=== PATIENT | male | born 1985 | race Caucasian/White ===

== ENCOUNTER 2017-02-26 04:17 | Emergency (ER) | payer BC ==
[2017-02-26] MEDS ORDERED: HYDROmorphone 2 MG/ML Syringe IM ONE (04:21)
[2017-02-26] MEDS ORDERED: HYDROmorphone 1 MG/ML Syringe ONE (04:23)
--- NOTE | 2017-02-26 05:13 | EDM.PDOC ---
ED HPI GENERAL MEDICAL PROBLEM - General Chief Complaint: Upper Extremity Injury/Pain Stated Complaint: RIGHT SHOULDER PAIN Time Seen by Provider: 02/26/17 05:11 - History of Present Illness INITIAL COMMENTS - FREE TEXT/NARRATIVE: HISTORY AND PHYSICAL: History of present illness: Patient 31-year-old white male presents with a concern of subluxation of this right shoulder this occurred during sex he's had this happen multiple times prior he denies other trauma or concern Review of systems: As per history of present illness and below otherwise all systems reviewed and negative. Past medical history: As per history of present illness and as reviewed below otherwise noncontributory. Surgical history: As per history of present illness and as reviewed below otherwise noncontributory. Social history: No reported history of drug or alcohol abuse. Family history: As per history of present illness and as reviewed below otherwise noncontributory. Physical exam: HEENT: Atraumatic, normocephalic, pupils reactive, negative for conjunctival pallor or scleral icterus, mucous membranes moist, throat clear, neck supple, nontender, trachea midline. Lungs: Clear to auscultation, breath sounds equal bilaterally, chest nontender. Heart: S1S2, regular, negative for clicks, rubs, or JVD. Abdomen: Soft, nondistended, nontender. Negative for masses or hepatosplenomegaly. Negative for costovertebral tenderness. Pelvis: Stable nontender. Genitourinary: Deferred. Rectal: Deferred. Extremities: Patient with before meals drop-off of his right shoulder with obvious dislocation no vascular exam unremarkable Neuro: Awake, alert, oriented. Cranial nerves II through XII unremarkable. Cerebellum unremarkable. Motor and sensory unremarkable throughout. Exam nonfocal. Diagnostics: X-ray right shoulder Therapeutics: Patient right shoulder subluxation reduced with traction countertraction successful reduction sling applied Impression: #1 subluxation right shoulder Definitive disposition and diagnosis as appropriate pending reevaluation and review of above. right shoulder Pain Score (Numeric/FACES): 10 - Related Data Allergies Allergy/AdvReac Type Severity Reaction Status Date / Time No Known Allergies Allergy Verified 02/26/17 04:21 Home Meds: Home Meds . [No Known Home Meds] 02/26/17 [History] Past Medical History - Past Health History Medical/Surgical History: Denies Medical/Surgical History Gastrointestinal History: Reports: Chronic Diarrhea, GERD, Irritable Bowel Syndrome Musculoskeletal History: Reports: Other (See Below) Other Musculoskeletal History: hx of dislocation Psychiatric History: Reports: Anxiety, Depression - Past Surgical History GI Surgical History: Reports: Colonoscopy, EGD Social & Family History - Family History Family Medical History: Noncontributory - Tobacco Use Smoking Status *Q: Current Every Day Smoker Years of Tobacco use: 7 Packs/Tins Daily: 1 Second Hand Smoke Exposure: Yes - Alcohol Use Days Per Week of Alcohol Use: 5 Number of Drinks Per Day: 10 Total Drinks Per Week: 50 - Recreational Drug Use Recreational Drug Use: No Review of Systems - Review of Systems Review Of Systems: ROS reveals no pertinent complaints other than HPI. ED EXAM, GENERAL - Physical Exam Exam: See Below (See dictation) Course - Vital Signs Last Recorded V/S: Last Vital Signs Temp 36.2 C 02/26/17 04:18 Pulse 95 02/26/17 04:18 Resp 20 02/26/17 04:18 BP 151/92 H 02/26/17 04:18 Pulse Ox 97 02/26/17 04:18 - Orders/Labs/Meds Orders: Active Orders 24 hr Category Date Time Status Shoulder Comp Rt [CR] Stat Exams 02/26/17 04:22 Taken Shoulder Comp Rt [CR] Stat Exams 02/26/17 04:59 Ordered Meds: Medications Discontinued Medications Generic Name Dose Route Start Last Admin Trade Name Tiera PRN Reason Stop Dose Admin Hydromorphone HCl 1 mg 02/26/17 04:21 02/26/17 04:31 Dilaudid IM 02/26/17 04:22 1 mg ONETIME ONE Administration Hydromorphone HCl Confirm 02/26/17 04:23 02/26/17 04:31 Dilaudid Administered 02/26/17 04:24 Not Given Dose 1 mg .ROUTE .STK-MED ONE Departure - Departure Time of Disposition: 05:12 Disposition: Home, Self-Care 01 Condition: Good Clinical Impression: Shoulder dislocation - Discharge Information Referrals: Roberth Burton MD [Primary Care Provider] - Additional Instructions: The following information is given to patients seen in the emergency department who are being discharged to home. This information is to outline your options for follow-up care. We provide all patients seen in our emergency department with a follow-up referral. The need for follow-up, as well as the timing and circumstances, are variable depending upon the specifics of your emergency department visit. If you don't have a primary care physician on staff, we will provide you with a referral. We always advise you to contact your personal physician following an emergency department visit to inform them of the circumstance of the visit and for follow-up with them and/or the need for any referrals to a consulting specialist. The emergency department will also refer you to a specialist when appropriate. This referral assures that you have the opportunity for followup care with a specialist. All of these measure are taken in an effort to provide you with optimal care, which includes your followup. Under all circumstances we always encourage you to contact your private physician who remains a resource for coordinating your care. When calling for followup care, please make the office aware that this follow-up is from your recent emergency room visit. If for any reason you are refused follow-up, please contact the [facility] emergency department at and asked to speak to the emergency department charge nurse. [facility] Professional [address], [address] [place] [address] Sling as directed Motrin/Tylenol as directed follow-up orthopedic clinic call for routine appointment above return as needed as discussed - My Orders Last 24 Hours: My Active Orders 02/26/17 04:22 Shoulder Comp Rt [CR] Stat 02/26/17 04:59 Shoulder Comp Rt [CR] Stat - Assessment/Plan Last 24 Hours: My Active Orders 02/26/17 04:22 Shoulder Comp Rt [CR] Stat 02/26/17 04:59 Shoulder Comp Rt [CR] Stat
[2017-02-26 05:42] VITALS: BP 135/89
--- NOTE | 2017-02-27 13:15 | CR ---
EXAM DATE: 02/26/17 PATIENT'S AGE: 31 Patient: TYLOR HARRIS Facility: [place], [place] Site . Site : 1985 Study: XRay Shoulder Right [id number]/27/2017 4:41:54 AM Ordering Physician: Doctor Bone Final Report: Indication: Right shoulder dislocation. Technique: Right shoulder two views. Comparison: 07/04/2015. Findings: There is anterior inferior dislocation of the humeral head relative to the glenoid. No evidence of acute fracture. Soft tissues as imaged are unremarkable. Impression: Right anterior inferior shoulder dislocation. Dictated by Dev Monreal MD @ 02/26/2017 4:54:37 AM Dictated by: Dev Monreal MD @ 02/26/2017 04:54:45 (Electronic Signature) Report Signed by Proxy. [facility]
--- NOTE | 2017-02-27 13:16 | CR ---
EXAM DATE: 02/26/17 PATIENT'S AGE: 31 Patient: TYLOR HARRIS Facility: [place], [place] Site . Site : 1985 Study: XRay Shoulder Right [id number]/27/2017 5:21:43 AM Ordering Physician: Norma eWtzel Final Report: Indication: Post reduction. Technique: Right shoulder one view. Comparison: Right shoulder February 26, 2017 at 4:25 a.m.. Findings: Successful reduction of previously noted right shoulder dislocation. No evidence of acute fracture. Impression: Successful reduction of right shoulder dislocation. Dictated by Dve Monreal MD @ 02/26/2017 5:28:59 AM Dictated by: Dev Monreal MD @ 02/26/2017 05:29:15 (Electronic Signature) Report Signed by Proxy. [facility]
== END 2017-02-26 05:45 | disposition home or self-care (01) ==
LOC: MW.ED 04:17
DX: S43.004A Unspecified dislocation of right shoulder joint, initial encounter (principal); K21.9 Gastro-esophageal reflux disease without esophagitis; F17.210 Nicotine dependence, cigarettes, uncomplicated; X58.XXXA Exposure to other specified factors, initial encounter
CPT/HCPCS: 23650; 73020; 73030; 96372; 99283; A4566; J1170; 99282

== ENCOUNTER 2021-01-17 15:36 | Emergency (ER) | payer BC ==
[2021-01-17 16:09] VITALS: BP 138/96; PULSE 93
--- NOTE | 2021-01-17 16:23 | EDM.PDOC ---
<Romi Jones - Last Filed: 01/17/21 17:15> ED HPI GENERAL MEDICAL PROBLEM - General Chief Complaint: Upper Extremity Injury/Pain Stated Complaint: SHOULDER PAIN Time Seen by Provider: 01/17/21 15:41 Source of Information: Reports: Patient History Limitations: Reports: No Limitations - History of Present Illness INITIAL COMMENTS - FREE TEXT/NARRATIVE: HISTORY AND PHYSICAL: History of present illness: Patient is a 35-year-old male who presents to the ED today with concern of pain following dislocation and states he was able to relocate his right shoulder on his own. Patient states that he does have frequent shoulder dislocation and had surgery on his shoulder 5 years ago [facility] [place]. Patient states since then, he does not have as frequent shoulder dislocations but it has happened several times since the surgery. Patient states that he pushed himself up out of a chair today and felt his shoulder dislocate and states that he was able to get it to pop back in but has some residual pain in his right shoulder and was concerned that he had dislodged some instrumentation in his right shoulder. Patient states that he has full sensation of his upper extremity and denies any direct trauma. Patient denies any other symptoms or concerns. Patient denies fever, chills, chest pain, shortness of breath, or cough. Denies headache, neck stiff ness, change in vision, syncope, or near syncope. Denies nausea, vomiting, abdominal pain, diarrhea, constipation, or dysuria. Has not noted any blood in urine or stool. Patient has been eating and drinking appropriately. Review of systems: As per history of present illness and below otherwise all systems reviewed and negative. Past medical history: As per history of present illness and as reviewed below otherwise noncontributory. Surgical history: As per history of present illness and as reviewed below otherwise noncontributory. Social history: See social history for further information Family history: As per history of present illness and as reviewed below otherwise noncontributory. Physical exam: General: Patient is alert, oriented, and in no acute distress. Patient sitting comfortably on exam table. Vitals stable and reviewed by me. HEENT: Atraumatic, normocephalic, pupils equal and reactive bilaterally, negative for conjunctival pallor or scleral icterus, mucous membranes moist, TMs normal bilaterally, throat clear, neck supple, nontender, trachea midline. No drooling or trismus noted. No meningeal signs. No hot potato voice noted. Lungs: Clear to auscultation, breath sounds equal bilaterally, chest nontender. Heart: S1S2, regular rate and rhythm without overt murmur Abdomen: Soft, nondistended, nontender. Negative for masses or hepat osplenomegaly. Negative for costovertebral tenderness. Pelvis: Stable nontender. Genitourinary: Deferred. Rectal: Deferred. Skin: Intact, warm, dry. No lesions or rashes noted. Extremities: The right shoulder is in a sling. Unable to assess the right shoulder due to pain of the right shoulder but does have full range of motion of the right elbow wrist and digits of the right upper extremity. Radial pulses grossly intact of the right upper extremity with capillary refill less than 2 seconds. No obvious erythema, edema, or increased warmth of the right shoulder with some mild discomfort to palpation of the anterior shoulder of the right. Intact sensation to light and deep touch of the complete right upper extremity. All compartments are soft of the right upper extremity. Otherwise, atraumatic, negative for cords or calf pain. Neurovascular unremarkable. Neuro: Awake, alert, oriented. Cranial nerves II through XII unremarkable. Cerebellum unremarkable. Motor and sensory unremarkable throughout. Exam nonfocal. Notes: Discussed importance of follow-up with an orthopedic provider. Signs symptoms that were prompt return to the ED thoroughly discussed with patient. Voices understanding and is agreeable to plan of care. Denies any further questions or concerns at this time. Diagnostics: Right shoulder x-ray Therapeutics: Toradol IM Prescription: None Impression: Right shoulder pain Shoulder dislocation, recurrent, reduced prior to ED Plan: 1. Rest, ice, elevate the affected extremity. You can apply ice 15 minutes on, 15 minutes off. 2. Tylenol and/or Ibuprofen as directed for pain management or discomfort. 3. Follow up with the Orthopedic provider as discussed. Return to the ED as needed and as discussed. Definitive disposition and diagnosis as appropriate pending reevaluation and review of above. right shoulder Pain Score (Numeric/FACES): 10 - Related Data Allergies Allergy/AdvReac Type Severity Reaction Status Date / Time No Known Allergies Allergy Verified 01/17/21 16:00 Home Meds: Home Meds Blood Pressure; 01/17/21 [History] Cholesterol Medication 01/17/21 [History] Omeprazole Magnesium [Prilosec Otc] 01/17/21 [History] QUEtiapine [SEROquel] 25 mg PO BID 01/17/21 [History] Past Medical History - Past Health History Medical/Surgical History: Denies Medical/Surgical History Cardiovascular History: Reports: High Cholesterol, Hypertension Gastrointestinal History: Reports: Chronic Diarrhea, GERD, Irritable Bowel Syndrome Musculoskeletal History: Reports: Other (See Below) Other Musculoskeletal History: hx of frequent right shoulder dislocation and reduction. Psychiatric History: Reports: Anxiety, Depression - Infectious Disease History Infectious Disease History: Reports: Chicken Pox, Shingles - Past Surgical History GI Surgical History: Reports: Colonoscopy, EGD Social & Family History - Family History Family Medical History: No Pertinent Family History - Tobacco Use Tobacco Use Status *Q: Former Tobacco User Used Tobacco, but Quit: Yes Month/Year Tobacco Last Used: 2017 - Recreational Drug Use Recreational Drug Use: No Review of Systems - Review of Systems Review Of Systems: Comprehensive ROS is negative, except as noted in HPI. ED EXAM, GENERAL - Physical Exam Exam: See Below (see dictation) Departure - Departure Disposition: Home, Self-Care 01 Clinical Impression: Shoulder pain Qualifiers: Chronicity: acute Laterality: right Qualified Code(s): M25.511 - Pain in right shoulder Shoulder dislocation, recurrent Qualifiers: Laterality: right Qualified Code(s): M24.411 - Recurrent dislocation, right shoulder - Discharge Information Instructions: Shoulder Dislocation, [id number] Referrals: Wil Trevino MD [Primary Care Provider] - Forms: ED Department Discharge Additional Instructions: [facility] [address], [address] [place] [address] The following information is given to patients seen in the emergency department who are being discharged to home. This information is to outline your options for follow-up care. We provide all patients seen in our emergency department with a follow-up referral. The need for follow-up, as well as the timing and circumstances, are variable depending upon the specifics of your emergency department visit. If you don't have a primary care physician on staff, we will provide you with a referral. We always advise you to contact your personal physician following an emergency department visit to inform them of the circumstance of the visit and for follow-up with them and/or the need for any referrals to a consulting specialist. The emergency department will also refer you to a specialist when appropriate. This referral assures that you have the opportunity for follow-up care with a specialist. All of these measure are taken in an effort to provide you with optimal care, which includes your follow-up. Under all circumstances we always encourage you to contact your private physician who remains a resource for coordinating your care. When calling for follow-up care, please make the office aware that this follow-up is from your recent emergency room visit. If for any reason you are refused follow-up, please contact the [facility] Emergency Department at and asked to speak to the emergency department charge nurse. 1. Rest, ice, elevate the affected extremity. You can apply ice 15 minutes on, 15 minutes off. Continue to use your shoulder sling as discussed until orthopedic evaluation. 2. Tylenol and/or Ibuprofen as directed for pain management or discomfort. 3. Follow up with the Orthopedic provider as discussed. Return to the ED as needed and as discussed. Sepsis Event Note (ED) - Evaluation Sepsis Screening Result: No Definite Risk <Larry Hamilton - Last Filed: 01/17/21 17:40> Course - Vital Signs Text/Narrative:: Patient was dislocated now is relocated it himself. He has not seen orthopedics for more than 2 years. It happened before. X-rays normal to my exam. Patient is neurovascular status in the median ulnar and radial as well as capillary refi ll are intact in the right upper extremity. Discharged with a sling. Last Recorded V/S: Last Vital Signs Temp 37.1 C 01/17/21 16:04 Pulse 93 01/17/21 16:04 Resp 18 01/17/21 16:04 BP 138/96 H 01/17/21 16:04 Pulse Ox 97 01/17/21 16:04 - Orders/Labs/Meds Orders: Active Orders 24 hr Category Date Time Status DME for Discharge [COMM] Stat Oth 01/17/21 17:25 Ordered Meds: Medications Discontinued Medications Generic Name Dose Route Start Last Admin Trade Name Freq PRN Reason Stop Dose Admin Ketorolac Tromethamine 60 mg 01/17/21 16:59 01/17/21 17:12 Ketorolac 60 Mg/2 Ml Sdv IM 01/17/21 17:00 60 mg ONETIME ONE Administration Departure - Departure Time of Disposition: 17:11 Condition: Good Sepsis Event Note (ED) - Focused Exam Vital Signs: Vital Signs Temp Pulse Resp BP Pulse Ox 01/17/21 16:04 37.1 C 93 18 138/96 H 97
--- NOTE | 2021-01-17 16:42 | CR ---
Indication: Shoulder dislocation. Pain. Technique: Three views of the right shoulder. Comparison: March 14, 2017. Findings: The humeral head is seated within the glenoid. No fracture or subluxation is identified. Impression: No acute fracture Dictated by Megha Overton MD @ 01/17/2021 4:40:[address] Megha Overton @ Jan 17 2021 4:40PM
[2021-01-17] MEDS ORDERED: Ketorolac 60 MG/2 ML SDV IM ONE (16:59)
== END 2021-01-17 17:34 | disposition home or self-care (01) ==
LOC: MW.ED 15:36
DX: M24.411 Recurrent dislocation, right shoulder (principal); E78.00 Pure hypercholesterolemia, unspecified; I10 Essential (primary) hypertension; K21.9 Gastro-esophageal reflux disease without esophagitis; Z87.891 Personal history of nicotine dependence
CPT/HCPCS: 73030; 96372; 99283; J1885

== ENCOUNTER 2021-02-26 19:46 | Emergency (ER) | payer BC ==
[2021-02-26] MEDS ORDERED: Diphtheria,Pertussis(Acell),Tetanus Vaccine 0.5 ML Syringe IM ONE (21:09)
[2021-02-26] MEDS ORDERED: Octyl 2-Cyanoacrylate 1 APPLIC TUBE TOP ONE (21:25)
--- NOTE | 2021-02-26 21:32 | EDM.PDOC ---
ED HPI GENERAL MEDICAL PROBLEM - General Chief Complaint: Laceration Stated Complaint: LACERATION ON RT FINGER Time Seen by Provider: 02/26/21 21:08 - History of Present Illness INITIAL COMMENTS - FREE TEXT/NARRATIVE: History of present illness: [] This healthy 35-year-old male cut his right index finger. He has laceration on the dorsal PIP #2 of the index finger of the right upper extremity. There is no functional deficit or neurovascular deterioration distally. Review of systems: As per history of present illness and below otherwise all systems reviewed and negative. Past medical history: As per history of present illness and as reviewed below otherwise noncontributory. Surgical history: As per history of present illness and as reviewed below otherwise noncontributory. Social history: No reported history of drug or alcohol abuse. Family history: As per history of present illness and as reviewed below otherwise noncontributory. Physical exam: Constitutional - well developed, well-nourished and in no acute distress HEENT - normocephalic, no evidence of trauma - external nose and mouth normal - no mass in neck and no JVD - mucosae moist EYES - full EOM, PERRL, no icterus - no evidence of inflammation, injection, or drainage Respiratory - no respiratory distress, equal bilateral expansio Musculoskeletal no gross deformity of long bones or joints - no tenderness, swelling or edema Neurologic - Alert and oriented times four - CN II-XII grossly intact - motor sensory and coordination symmetrically normal Psychiatric - appropriate mood and affect with normal thought content Hematologic - No petechiae or purpura - mucosa appropriate color and sclera not pale - normal nail bed color and refill Integument -laceration to the index finger of the right hand. Its longitudinal no of the dorsal the PIP and he has normal function and normal distal sensation motion and capillary refill. Otherwise no rash or evidence of trauma - normal turgor Diagnostics: [] Therapeutics: [] Impression: [] Plan: [] Definitive disposition and diagnosis as appropriate pending reevaluation and review of above. Right Finger-Index Pain Score (Numeric/FACES): 4 - Related Data Allergies Allergy/AdvReac Type Severity Reaction Status Date / Time No Known Allergies Allergy Verified 02/26/21 21:10 Home Meds: Home Meds . [Unable to Verify Home Med List] 02/26/21 [History] Past Medical History - Past Health History Medical/Surgical History: Denies Medical/Surgical History Cardiovascular History: Reports: High Cholesterol, Hypertension Gastrointestinal History: Reports: Chronic Diarrhea, GERD, Irritable Bowel Syndrome Musculoskeletal History: Reports: Other (See Below) Other Musculoskeletal History: hx of frequent right shoulder dislocation and reduction. Psychiatric History: Reports: Anxiety, Depression - Infectious Disease History Infectious Disease History: Reports: Chicken Pox, Shingles - Past Surgical History GI Surgical History: Reports: Colonoscopy, EGD Social & Family History - Family History Family Medical History: No Pertinent Family History - Tobacco Use Tobacco Use Status *Q: Never Tobacco User - Caffeine Use Caffeine Use: Reports: None - Recreational Drug Use Recreational Drug Use: No ED ROS GENERAL - Review of Systems Review Of Systems: Comprehensive ROS is negative, except as noted in HPI. ED EXAM, SKIN/RASH Exam: See Below Text/Narrative:: My physical exam is in the HPI ED SKIN PROCEDURES - Laceration/Wound Repair Right Digit - 2nd (Index) Appearance: Superficial Distal NVT: Neuro & Vascular Intact, No Tendon Injury Skin Prep: Providone-Iodine (Betadine), Saline Saline Irrigation (cc's): 250 Exploration/Debridement/Repair: In a Bloodless Field Closed with: Dermabond Lac/Wound length In cm: 1.5 Progress/Comments: Patient elected the adhesive repair. He agreed that he would wear splint for 2 days so that he did not write that he is of bending his finger. Adhesive was applied without complication. Course - Vital Signs Text/Narrative:: Neurovascular structures intact and unchanged after splint applied. DME splint was applied and gentle flexion in position of function so that he did not rip the adhesive off with aggressive range of motion of the finger. This is needed for 2 days Last Recorded V/S: Last Vital Signs Temp 36.1 C 02/26/21 21:10 Pulse 91 02/26/21 21:10 Resp 16 02/26/21 21:10 BP 134/90 02/26/21 21:10 Pulse Ox 95 02/26/21 21:10 - Orders/Labs/Meds Orders: Active Orders 24 hr Category Date Time Status Vaccines to be Administered [RC] PER UNIT ROUTINE Care 02/26/21 21:09 Active Meds: Medications Discontinued Medications Generic Name Dose Route Start Last Admin Trade Name Freq PRN Reason Stop Dose Admin Diphtheria/Tetanus/Acell Pertussis 0.5 ml 02/26/21 21:09 Diphtheria,Pertussis(Acell),Tetanus Vaccine 0.5 Ml Syringe IM 02/26/21 21:10 .ONCE ONE Octyl Cyanoacrylate 1 applic 02/26/21 21:25 Octyl 2-Cyanoacrylate 1 Applic Tube TOP 02/26/21 21:26 ONETIME ONE Departure - Departure Time of Disposition: 21:28 Disposition: Home, Self-Care 01 Condition: Good Clinical Impression: Laceration of index finger - Discharge Information Instructions: Laceration Care, Adult, [id number], Sutures, William, or Adhesive Wound Closure, [id number] Referrals: Wil Trevino MD [Primary Care Provider] - Additional Instructions: Do not aggressively Pheresis Specialist move this finger for 2 days so the glue can heal. [facility] - Primary Care [address] [place] [address] [place] [address] The following information is given to patients seen in the emergency department who are being discharged to home. This information is to outline your options for follow-up care. We provide all patients seen in our emergency department with a follow-up referral. The need for follow-up, as well as the timing and circumstances, are variable depending upon the specifics of your emergency department visit. If you don't have a primary care physician on staff, we will provide you with a referral. We always advise you to contact your personal physician following an emergency department visit to inform them of the circumstance of the visit and for follow-up with them and/or the need for any referrals to a consulting specialist. The emergency department will also refer you to a specialist when appropriate. This referral assures that you have the opportunity for follow-up care with a specialist. All of these measure are taken in an effort to provide you with optimal care, which includes your follow-up. Under all circumstances we always encourage you to contact your private physician who remains a resource for coordinating your care. When calling for follow-up care, please make the office aware that this follow-up is from your recent emergency room visit. If for any reason you are refused follow-up, please contact the [facility] Emergency Department at and asked to speak to the emergency department charge nurse. Sepsis Event Note (ED) - Evaluation Sepsis Screening Result: No Definite Risk - Focused Exam Vital Signs: Vital Signs Temp Pulse Resp BP Pulse Ox 02/26/21 21:10 36.1 C 91 16 134/90 95 - My Orders Last 24 Hours: My Active Orders 02/26/21 21:09 Vaccines to be Administered [RC] PER UNIT ROUTINE - Assessment/Plan Last 24 Hours: My Active Orders 02/26/21 21:09 Vaccines to be Administered [RC] PER UNIT ROUTINE
[2021-02-26 22:44] VITALS: BP 130/73; PULSE 82
== END 2021-02-26 21:54 | disposition home or self-care (01) ==
LOC: MW.ED 19:46
DX: S61.210A Laceration without foreign body of right index finger without damage to nail, initial encounter (principal); I10 Essential (primary) hypertension; Z23 Encounter for immunization; W26.8XXA Contact with other sharp object(s), not elsewhere classified, initial encounter
CPT/HCPCS: 12001; 90471; 90715; 99282; A9270

== ENCOUNTER 2021-11-27 13:51 | Emergency (ER) | payer BC ==
[2021-11-27] MEDS ORDERED: HYDROmorphone 1 MG/ML Syringe IVPUSH ONE ×2 (14:20→15:53)
[2021-11-27] MEDS ORDERED: Ondansetron 4 MG/2 ML SDV IVPUSH ONE (14:20)
[2021-11-27 14:41] VITALS: BP 142/102
[2021-11-27 16:52] VITALS: PULSE 72
== END 2021-11-27 17:08 | disposition home or self-care (01) ==
LOC: MW.ED 13:51
DX: M24.411 Recurrent dislocation, right shoulder (principal); I10 Essential (primary) hypertension
CPT/HCPCS: 23650; 73020; 73030; 96374; 96375; 96376; 99283; J1170; J2405; 99282

== ENCOUNTER 2024-03-31 20:27 | Emergency (ER) | payer BC ==
[2024-03-31 20:38] VITALS: BP 112/82; PULSE 89
== END 2024-03-31 21:08 | disposition left against medical advice (07) ==
LOC: MW.ED 20:27
DX: S43.004A Unspecified dislocation of right shoulder joint, initial encounter (principal); I10 Essential (primary) hypertension; E78.00 Pure hypercholesterolemia, unspecified; Z79.899 Other long term (current) drug therapy; X58.XXXA Exposure to other specified factors, initial encounter
CPT/HCPCS: 99283